=== PATIENT | female | born 1980 | race Caucasian/White ===

== ENCOUNTER → 2023-04-11 07:10 | Outpatient (REF) | payer BC, SELFPAY | LOC: MRI 3T 07:10 | PROVIDERS: ATTENDING PHYSICIAN Family Medicine | DX: K76.9 Liver disease, unspecified (principal); R10.9 Unspecified abdominal pain | CPT/HCPCS: 70030; 74183; A9575 ==

== ENCOUNTER 2023-04-26 08:36 | Outpatient (REF) | payer BC, SELFPAY ==
[2023-04-26] VITALS (8 sets, daily range): BP systolic 66–133; BP diastolic 73–83
[2023-04-26 09:14] LABS: Hematocrit 41.9 % (37.0-47.0); Hemoglobin 14.3 g/dL (12.0-16.0); Mean Corp Hgb Conc. 34.1 g/dL (33.0-37.0); Mean Corpuscular Hgb 30.7 pg (27.0-31.0); Mean Corpuscular Volume 89.9 fL (81.0-99.0); Mean Platelet Volume 9.2 fL (7.4-10.4); Platelet Count 292 10^3/uL (130-400); Red Blood Cell Count 4.66 10^6/uL (4.20-5.40); Red Cell Dist. Width 11.6 % (11.5-14.5); White Blood Cell Count 5.7 10^3/uL (4.8-10.8)
[2023-04-26 09:25] LABS: INR 0.97; PT 12.7 Sec (11.4-14.6)
[2023-04-26] MEDS: TYLENOL 650 MG PO (12:26)
== END 2023-04-26 13:22 | disposition home or self-care (01) ==
LOC: RADI 08:36
PROVIDERS: ATTENDING PHYSICIAN Family Medicine
DX: D18.03 Hemangioma of intra-abdominal structures (principal); Z01.812 Encounter for preprocedural laboratory examination; Z01.818 Encounter for other preprocedural examination
CPT/HCPCS: 88307; 36415; 47000; 76942; 85027; 85610; 88333; 88334; 99152; 99153

== ENCOUNTER → 2025-01-01 10:41 | Outpatient (REF) | payer BC, SELFPAY | LOC: HWRAD 10:41 | PROVIDERS: ATTENDING PHYSICIAN Family Medicine | DX: M25.572 Pain in left ankle and joints of left foot (principal) | CPT/HCPCS: 73610 ==